=== PATIENT | male | born 1955 | race Caucasian/White ===

== ENCOUNTER → 2020-08-14 | Outpatient (CLI) | payer OTHER ==
[~2020-08-14] MED LIST: ASPIR 8181 MG PO; ATORVASTATIN CA20 MG PO; COVID-19 VACC, MRNA(MODERNA)/PF 100 MCG/0.5 ML VIAL IM ONE; ENALAPRIL MALEA20 MG PO; LISINOPRIL10 MG PO; NORCO 7.5-3251 EACH PO
== END ==
LOC: VACCPMC 09:22
DX: Z23 Encounter for immunization (principal); Z20.822 Contact with and (suspected) exposure to COVID-19

== ENCOUNTER → 2020-09-18 | Outpatient (CLI) | payer OTHER | END | DRG 951 | LOC: VACCPMC 09:20 | DX: Z23 Encounter for immunization (principal); Z20.822 Contact with and (suspected) exposure to COVID-19 | CPT/HCPCS: 0012A; 91301 ==

== ENCOUNTER 2022-07-14 16:41 | Emergency (ER) | payer BC, MEDICARE ==
[~2022-07-14] VITALS: Ht 172.7 cm; Wt 103.0 kg
[~2022-07-14 16:41] MED LIST changes: -COVID-19 VACC, MRNA(MODERNA)/PF 100 MCG/0.5 ML VIAL IM ONE
[2022-07-14] MEDS ORDERED: LIDOCAINE HCL 2% LOCAL 20 ML VIAL INJ STA (17:46)
[2022-07-14] MEDS ORDERED: TETANUS/DIPHTHERIA TOX ADULT 0.5 ML SYR IM STA (17:46)
[2022-07-14] MEDS ORDERED: DOXYCYCLINE HY100 MG PO (17:55)
[2022-07-14] MEDS ORDERED: IBUPROFEN200 MG PO (17:55)
[2022-07-14] MEDS ORDERED: MUPIROCIN 2% OINT 22 GM TUBE TOP ONE (18:00)
[2022-07-14] MEDS ORDERED: TETANUS/DIPHTHERIA TOX ADULT 0.5 ML SYR ONE (18:50)
[2022-07-14 19:15] VITALS: BP 178/90
== END 2022-07-14 19:15 | disposition home or self-care (01) ==
LOC: FSED 16:50
DX: S61.012A Laceration without foreign body of left thumb without damage to nail, initial encounter (principal); G89.11 Acute pain due to trauma; W26.0XXA Contact with knife, initial encounter; Z88.0 Allergy status to penicillin; Z23 Encounter for immunization; Z79.82 Long term (current) use of aspirin; Z79.899 Other long term (current) drug therapy
CPT/HCPCS: 90471; 90714; 99283

== ENCOUNTER 2024-02-27 15:12 | Emergency (ER) | payer MEDICARE ==
[~2024-02-27] VITALS: Ht 172.7 cm; Wt 99.8 kg
[~2024-02-27 15:12] MED LIST changes: +DOXYCYCLINE HY100 MG PO; +IBUPROFEN200 MG PO
[2024-02-27 16:26] LABS: BASOPHILS # (AUTO) 0.1 (0.0-0.1); BASOPHILS % 1.1 % (0.0-1.0); EOSINOPHILS # (AUTO) 0.3 (0.0-0.4); EOSINOPHILS % 3.7 % (0.0-6.0); HEMATOCRIT 46.2 % (38.2-49.6); HEMOGLOBIN 15.5 g/dL (14.0-18.0); LYMPHOCYTES # (AUTO) 2.7 (1.0-3.2); MEAN CORPUSCULAR HEMOGLOBIN 34.3 pg (28-32); MEAN CORPUSCULAR HGB CONC 33.5 g/dL (31-35); MEAN CORPUSCULAR VOLUME 102.2 fL (81-99); MONOCYTES # (AUTO) 0.8 (0.2-0.8); MONOCYTES % 8.8 % (4.4-11.3); NEUTROPHILS # (AUTO) 4.6 (2.1-6.9); NEUTROPHILS % 53.9 % (38.7-80.0); PLATELET COUNT 181 x10e3/uL (140-360); RED BLOOD COUNT 4.52 x10e6/uL (4.3-5.7); RED CELL DISTRIBUTION WIDTH 12.7 % (11.7-14.4); WHITE BLOOD COUNT 8.56 x10e3/uL (4.8-10.8)
[2024-02-27] MEDS: SODIUM CHLORIDE 0.9% 1000ML 1,000 ML IV STA (16:38)
[2024-02-27] MEDS: ONDANSETRON HCL INJ 2MG/ML 2ML 2 MG/ML VIAL IV STA ×2 (16:38→20:51)
[2024-02-27] MEDS: Morphine 4mg INJECTION 4 MG/ML INJ IV ONE (16:38)
[2024-02-27 16:49] LABS: ALANINE AMINOTRANSFERASE 49 IU/L (0-55); ALBUMIN/GLOBULIN RATIO 1.1 (0.8-2.0); ALKALINE PHOSPHATASE 75 IU/L (40-150); ANION GAP 19.8 mmol/L (8-16); BILIRUBIN,TOTAL 0.7 mg/dL (0.2-1.2); BLOOD UREA NITROGEN 22 mg/dL (7-26); BUN/CREATININE RATIO 24 (6-25); CALCIUM 9.2 mg/dL (8.4-10.2); CARBON DIOXIDE 16 mmol/L (22-29); CHLORIDE 107 mmol/L (98-107); CREATINE KINASE 57 IU/L (30-200); CREATININE, SERUM 0.91 mg/dL (0.72-1.25); EST GLOMERULAR FILTRATION RATE 91 ML/MIN (>=60); GLUCOSE 101 mg/dL (74-118); MAGNESIUM 2.2 MG/DL (1.3-2.1); POTASSIUM 4.8 mmol/L (3.5-5.1); SODIUM 138 mmol/L (136-145); TOTAL PROTEIN 7.8 g/dL (6.5-8.1)
[2024-02-27 17:05] LABS: TROPONIN I < 0.001 ng/mL (0-0.300)
[2024-02-27 17:18] LABS: INR 0.85; PROTHROMBIN TIME 12.3 seconds (11.9-14.5)
[2024-02-27 17:21] LABS: PARTIAL THROMBOPLASTIN TIME 23.5 seconds (23.8-35.5)
[2024-02-27 19:20] LABS: BILIRUBIN,URINE NEGATIVE (NEGATIVE); CLARITY,URINE SL CLOUDY (CLEAR); COLOR,URINE YELLOW (YELLOW); GLUCOSE, URINE NEGATIVE (NEGATIVE); KETONES,URINE NEGATIVE (NEGATIVE); LEUKOCYTE ESTERASE ,URINE NEGATIVE (NEGATIVE); NITRITE,URINE NEGATIVE (NEGATIVE); PH,URINE 5 (5 - 7); PROTEIN,URINE DIPSTICK NEGATIVE (NEGATIVE); URINE UROBILINOGEN 0.2 mg/dL (0.2 - 1)
[2024-02-27 19:22] LABS: AMPHETAMINES SCREEN,URINE NEGATIVE (NEGATIVE); BENZODIAZEPINES SCREEN,URINE NEGATIVE (NEGATIVE); CANNABINOIDS SCREEN,URINE POSITIVE (NEGATIVE); METHADONE SCREEN, URINE NEGATIVE (NEGATIVE); OPIATES SCREEN,URINE POSITIVE (NEGATIVE); PHENCYCLIDINE SCREEN,URINE NEGATIVE (NEGATIVE)
[2024-02-27] MEDS ORDERED: AZITHROMYCIN250 MG PO (20:30)
[2024-02-27] MEDS ORDERED: HYDROCODON-ACE1 EAC9 PO (20:30)
[2024-02-27 20:51] VITALS: BP 191/101
[2024-02-27] MEDS: HYDRALAZINE HCL 20 MG/ML VIAL IV STA (20:51)
[2024-02-27] MEDS: Morphine 4mg INJECTION 4 MG/ML INJ IV STA (20:51)
[2024-02-27 21:05] VITALS: PULSE 83; RESP 20; O2SAT 97
[2024-02-27 21:38] VITALS: PULSE 87; RESP 16; TEMP 98.1; O2SAT 98
== END 2024-02-27 21:40 | disposition home or self-care (01) ==
LOC: ER 15:38
DX: S42.191A Fracture of other part of scapula, right shoulder, initial encounter for closed fracture (principal); M54.6 Pain in thoracic spine; M54.50 Low back pain, unspecified; W18.39XA Other fall on same level, initial encounter; G89.29 Other chronic pain; Y92.89 Other specified places as the place of occurrence of the external cause; I10 Essential (primary) hypertension
CPT/HCPCS: 36415; 71260; 74177; 80053; 80307; 81001; 82550; 83735; 84484; 85025; 85610; 85730; 93005; 94799; 99284; J0360; J2270; J2405; J7030

== ENCOUNTER → 2024-04-17 | Outpatient (REF) | payer MEDICARE ==
[~2024-04-17] MED LIST changes: +AZITHROMYCIN250 MG PO; +HYDROCODON-ACE1 EAC9 PO
== END ==
LOC: RAD 12:19
PROVIDERS: ATTEND Orthopaedic Surgery Hand Surgery
DX: S42.111A Displaced fracture of body of scapula, right shoulder, initial encounter for closed fracture (principal)

== ENCOUNTER → 2024-06-22 | Outpatient (REF) | payer MEDICARE | LOC: RAD 10:13 | PROVIDERS: ATTEND Orthopaedic Surgery Hand Surgery | DX: S42.111D Displaced fracture of body of scapula, right shoulder, subsequent encounter for fracture with routine healing (principal) ==